=== PATIENT | female | born 1935 | race Hispanic/Latino ===

== ENCOUNTER 2017-04-30 00:04 | Observation (INO) | payer OTHER, MEDICARE ==
[~2017-04-30] VITALS: Ht 154.9 cm; Wt 48.5 kg
[2017-04-30] MEDS ORDERED: ACETAMINOPHEN-CODEINE ELIXIR 5 ML UDCUP ONE (00:41)
[2017-04-30] MEDS ORDERED: SODIUM CHLORIDE 0.9% 500ML 500 ML IV ONE (00:41)
[2017-04-30] MEDS ORDERED: ONDANSETRON HCL 4 MG/2 ML VIAL ONE (00:41)
[2017-04-30 01:18] LABS: BASOPHILS % (AUTO) 0.1 % (0.0-5.0); EOSINOPHILS % (AUTO) 0.1 % (0.0-8.0); HEMATOCRIT 34.2 % (36-48); LYMPHOCYTES % (AUTO) 8.6 % (21.0-51.0); MEAN CORPUSCULAR HEMOGLOBIN 29.5 pg (27.0-33.0); MEAN CORPUSCULAR HGB CONC 33.2 g/dL (32.0-36.0); MONOCYTES % (AUTO) 3.6 % (3.0-13.0); NEUTROPHILS % (AUTO) 87.6 % (40.0-77.0); PLATELET COUNT (AUTO) 306 K/uL (130-400); RED BLOOD CELL COUNT(AUTO) 3.85 MIL/uL (4.00-5.50); RED CELL DISTRIBUTION WIDTH 14.9 % (11.0-15.5); WHITE BLOOD COUNT (AUTO) 16.7 K/uL (4.8-10.8)
[2017-04-30] MEDS ORDERED: IOPAMIDOL-370 75 ML VIAL IV ONE (01:18)
[2017-04-30 01:29] LABS: CREATININE 0.5 mg/dL (0.5-1.5); POTASSIUM 3.3 mmol/L (3.5-5.1)
[2017-04-30 01:36] LABS: ALBUMIN 3.7 g/dL (3.5-5.0); BILIRUBIN,TOTAL 0.5 mg/dL (0.2-1.0); TOTAL PROTEIN, SERUM 7.2 g/dL (6.0-8.3)
[2017-04-30 01:42] LABS: B-TYPE NATRIURETIC PEPTIDE 22 pg/mL (0-100)
[2017-04-30] MEDS ORDERED: CEFTRIAXONE SODIUM 1 GM ONE (02:06)
[2017-04-30] MEDS ORDERED: METRONIDAZOLE 500 MG TABLET ONE (02:06)
[2017-04-30 02:23] LABS: APPEARANCE,URINE Clear (CLEAR); BILIRUBIN,URINE Negative (NEGATIVE); COLOR,URINE Yellow (YELLOW); GLUCOSE, URINE (UA) Negative (NEGATIVE); KETONES,URINE Trace mg/dL (NEGATIVE); LEUKOCYTE ESTERASE ,URINE Trace (NEGATIVE); NITRATE,URINE Positive (NEGATIVE); OCCULT BLOOD,URINE Negative (NEGATIVE); PH,URINE 6.5 (5.0-8.0); PROTEIN,URINE Negative (NEGATIVE)
[2017-04-30 02:33] LABS: BACTERIA,URINE Many /HPF (None Seen); MUCUS,URINE Rare LPF (None Seen); RBC,URINE None Seen /HPF (0-1); SQUAMOUS EPITHELIAL CELL,UR Rare /LPF (0-2)
[2017-04-30] MEDS ORDERED: POTASSIUM CHLORIDE 20 MEQ ERTAB PO ONE (02:33)
[2017-04-30] MEDS ORDERED: DOCUSATE SODIUM 100 MG CAP PO ONE (05:48)
[2017-04-30] MEDS ORDERED: SENNOSIDES 8.6 MG TABLET PO SCH (06:15)
[2017-04-30] MEDS ORDERED: NITROGLYCERIN 0.4 MG SL TAB SL ONE (11:55)
[2017-04-30] MEDS ORDERED: IPRATROPIUM/ALBUTEROL SULFATE 3 ML SOLUTION IH ONE (12:47)
[2017-04-30 17:51] VITALS: BP 141/64
[2017-04-30] MEDS ORDERED: ATOR40TA69 PO (18:33)
[2017-04-30] MEDS ORDERED: LEVO50TA4 PO (18:33)
[2017-04-30 23:53] VITALS: BP 164/57
[2017-05-01 04:23] VITALS: BP 155/56
[2017-05-01 07:30] VITALS: BP 139/59
== END 2017-05-01 15:50 | disposition home or self-care (01) ==
LOC: EDH 00:04 → EDHIP 05:41 → 3DH 17:20
PROVIDERS: ADMIT Internal Medicine; ATTEND Internal Medicine
DX: K56.609 Unspecified intestinal obstruction, unspecified as to partial versus complete obstruction (principal); M81.0 Age-related osteoporosis without current pathological fracture; J44.9 Chronic obstructive pulmonary disease, unspecified; F41.9 Anxiety disorder, unspecified; M19.90 Unspecified osteoarthritis, unspecified site
CPT/HCPCS: 36415; 74177; 80053; 81001; 82948; 83605; 83690; 83880; 85025; 87804 ×2; 93005; 99291; G0378 ×34; J0696; J2405; J7040; Q9967

== ENCOUNTER 2017-05-25 12:29 | Emergency (ER) | payer OTHER, MEDICARE ==
[~2017-05-25 12:29] MED LIST: ATOR40TA69 PO; LEVO50TA4 PO
== END 2017-05-25 15:38 | disposition home or self-care (01) ==
LOC: EDH 12:29
DX: S40.012A Contusion of left shoulder, initial encounter (principal); S60.222A Contusion of left hand, initial encounter; E78.5 Hyperlipidemia, unspecified; E07.9 Disorder of thyroid, unspecified; W18.39XA Other fall on same level, initial encounter; Y93.01 Activity, walking, marching and hiking; Y92.89 Other specified places as the place of occurrence of the external cause; Y99.8 Other external cause status
CPT/HCPCS: 73030; 73130

== ENCOUNTER 2017-06-03 01:44 | Inpatient (IN) | payer OTHER, MEDICARE ==
[~2017-06-03] VITALS: Ht 152.4 cm; Wt 49.3 kg
[2017-06-03 02:11] LABS: BASOPHILS % (AUTO) 0.1 % (0.0-5.0); HEMATOCRIT 38.5 % (36-48); LYMPHOCYTES % (AUTO) 8.6 % (21.0-51.0); MEAN CORPUSCULAR HGB CONC 32.8 g/dL (32.0-36.0); MEAN CORPUSCULAR VOLUME 88.2 fL (79-99); MONOCYTES % (AUTO) 2.8 % (3.0-13.0); NEUTROPHILS % (AUTO) 88.5 % (40.0-77.0); NUCLEATED RED BLOOD CELLS 0.1 % (0.0-0.19); PLATELET COUNT (AUTO) 294 K/uL (130-400); RED BLOOD CELL COUNT(AUTO) 4.37 MIL/uL (4.00-5.50); WHITE BLOOD COUNT (AUTO) 17.1 K/uL (4.8-10.8)
[2017-06-03] MEDS ORDERED: ONDANSETRON HCL 4 MG/2 ML VIAL ONE (02:24)
[2017-06-03] MEDS ORDERED: LACTATED RINGERS 1000ML 1,000 ML IV ONE (02:25)
[2017-06-03] MEDS ORDERED: MORPHINE SULFATE 2 MG/ML 1ML SYG ONE (02:25)
[2017-06-03 02:29] LABS: CREATININE 0.6 mg/dL (0.5-1.5); POTASSIUM 3.6 mmol/L (3.5-5.1)
[2017-06-03 02:32] LABS: ALBUMIN 4.1 g/dL (3.5-5.0); BILIRUBIN,TOTAL 0.5 mg/dL (0.2-1.0); TOTAL PROTEIN, SERUM 8.2 g/dL (6.0-8.3)
[2017-06-03 02:37] LABS: APPEARANCE,URINE Cloudy (CLEAR); BILIRUBIN,URINE Negative (NEGATIVE); COLOR,URINE Yellow (YELLOW); GLUCOSE, URINE (UA) Negative (NEGATIVE); KETONES,URINE Trace mg/dL (NEGATIVE); LEUKOCYTE ESTERASE ,URINE Small (NEGATIVE); NITRATE,URINE Negative (NEGATIVE); OCCULT BLOOD,URINE Negative (NEGATIVE); PROTEIN,URINE POS 2+ (NEGATIVE); UROBILINOGEN,URINE 0.2 mg/dL (0.2-1.0)
[2017-06-03 02:51] LABS: BACTERIA,URINE Few /HPF (None Seen); MUCUS,URINE Many LPF (None Seen); RBC,URINE None Seen /HPF (0-1); SQUAMOUS EPITHELIAL CELL,UR Few /LPF (0-2)
[2017-06-03] MEDS ORDERED: SODIUM CHLORIDE 0.9% 1000ML 1,000 ML IV ONE (08:07)
[2017-06-03 14:34] VITALS: BP 143/68
[2017-06-03 16:38] VITALS: BP 129/61
[2017-06-03] MEDS ORDERED: POLY17PO4 PO (19:09)
[2017-06-03 20:00] VITALS: BP 132/65
[2017-06-03] MEDS ORDERED: ONDANSETRON HCL 4 MG/2 ML VIAL IVP PRN (21:00)
[2017-06-03] MEDS: FAMOTIDINE/PF 20 MG/2 ML VIAL IV SCH (21:00)
[2017-06-03] MEDS ORDERED: HYDROMORPHONE HCL 0.5 MG/0.5 ML ML IVP PRN (21:00)
[2017-06-03] MEDS: SODIUM CHLORIDE 0.9% 1000ML 1,000 ML IV SCH (21:00)
[2017-06-04 00:17] VITALS: BP 121/59
[2017-06-04] MEDS: SODIUM CHLORIDE 0.9% 1000ML 1,000 ML IV SCH (01:39)
[2017-06-04 04:38] VITALS: BP 144/60
[2017-06-04 06:06] LABS: BASOPHILS % (AUTO) 0.5 % (0.0-5.0); EOSINOPHILS % (AUTO) 1.1 % (0.0-8.0); HEMATOCRIT 29.6 % (36-48); LYMPHOCYTES % (AUTO) 36.3 % (21.0-51.0); MEAN CORPUSCULAR HEMOGLOBIN 29.2 pg (27.0-33.0); MEAN CORPUSCULAR VOLUME 88.4 fL (79-99); NEUTROPHILS % (AUTO) 54.1 % (40.0-77.0); NUCLEATED RED BLOOD CELLS 0.1 % (0.0-0.19); PLATELET COUNT (AUTO) 217 K/uL (130-400); RED BLOOD CELL COUNT(AUTO) 3.34 MIL/uL (4.00-5.50); RED CELL DISTRIBUTION WIDTH 15.1 % (11.0-15.5); WHITE BLOOD COUNT (AUTO) 5.6 K/uL (4.8-10.8)
[2017-06-04 06:07] LABS: CREATININE 0.6 mg/dL (0.5-1.5); POTASSIUM 3.5 mmol/L (3.5-5.1)
[2017-06-04 07:58] VITALS: BP 142/63
[2017-06-04] MEDS: LACTULOSE 20 GM/30 ML UDCUP PO SCH ×2 (08:18→14:45)
[2017-06-04] MEDS: FAMOTIDINE/PF 20 MG/2 ML VIAL IV SCH (08:18)
[2017-06-04 11:19] VITALS: BP 146/68
== END 2017-06-04 17:35 | disposition home or self-care (01) | DRG 390 ==
LOC: EDH 01:44 → EDHIP 04:43 → 4BH 14:04
PROVIDERS: ADMIT Internal Medicine; ATTEND Internal Medicine
DX: K56.609 Unspecified intestinal obstruction, unspecified as to partial versus complete obstruction (principal); E86.0 Dehydration; J44.9 Chronic obstructive pulmonary disease, unspecified; E03.9 Hypothyroidism, unspecified; E78.5 Hyperlipidemia, unspecified; D72.829 Elevated white blood cell count, unspecified; R73.9 Hyperglycemia, unspecified; I10 Essential (primary) hypertension; Z28.21 Immunization not carried out because of patient refusal
CPT/HCPCS: 36415; 74021; 74176; 80048; 80053; 81001; 82150; 83690; 85025; 87040; 87088; 87186; 93005; J2405; J3490; J7030; J7120

== ENCOUNTER → 2018-04-08 | Outpatient (CLI) | payer OTHER, MEDICARE ==
[~2018-04-08] MED LIST changes: +POLY17PO4 PO
== END | disposition home or self-care (01) ==
LOC: OIH 15:12
PROVIDERS: ATTEND Internal Medicine
DX: I70.0 Atherosclerosis of aorta (principal); I10 Essential (primary) hypertension; M47.815 Spondylosis without myelopathy or radiculopathy, thoracolumbar region; J84.10 Pulmonary fibrosis, unspecified
CPT/HCPCS: 71046

== ENCOUNTER → 2018-08-15 | Outpatient (CLI) | payer OTHER, MEDICARE | END | disposition home or self-care (01) | LOC: OIH 15:23 | PROVIDERS: ATTEND Internal Medicine | DX: M47.816 Spondylosis without myelopathy or radiculopathy, lumbar region (principal); M48.061 Spinal stenosis, lumbar region without neurogenic claudication; G95.9 Disease of spinal cord, unspecified; R25.2 Cramp and spasm | CPT/HCPCS: 72100 ==

== ENCOUNTER 2018-10-13 17:22 | Observation (INO) | payer OTHER, MEDICARE ==
[~2018-10-13] VITALS: Ht 157.5 cm; Wt 48.0 kg
[2018-10-13] MEDS ORDERED: SODIUM CHLORIDE 0.9% 1000ML 1,000 ML IV ONE (17:45)
[2018-10-13] MEDS ORDERED: ONDANSETRON HCL 4 MG/2 ML VIAL ONE (17:45)
[2018-10-13 18:25] LABS: BASOPHILS % (AUTO) 0.1 % (0.0-5.0); EOSINOPHILS % (AUTO) 0.1 % (0.0-8.0); HEMATOCRIT 37.2 % (36-48); LYMPHOCYTES % (AUTO) 12.4 % (21.0-51.0); MEAN CORPUSCULAR HEMOGLOBIN 28.2 pg (27.0-33.0); MEAN CORPUSCULAR HGB CONC 32.1 g/dL (32.0-36.0); MONOCYTES % (AUTO) 4.3 % (3.0-13.0); NEUTROPHILS % (AUTO) 83.1 % (40.0-77.0); PLATELET COUNT (AUTO) 308 K/uL (130-400); RED BLOOD CELL COUNT(AUTO) 4.23 MIL/uL (4.00-5.50); RED CELL DISTRIBUTION WIDTH 14.2 % (11.0-15.5); WHITE BLOOD COUNT (AUTO) 16.7 K/uL (4.8-10.8)
[2018-10-13 18:38] LABS: CREATININE 0.7 mg/dL (0.5-1.5); POTASSIUM 3.7 mmol/L (3.5-5.1)
[2018-10-13] MEDS ORDERED: KETOROLAC TROMETHAMINE 15MG/ML ONE (18:41)
[2018-10-13 18:42] LABS: APPEARANCE,URINE CLOUDY (CLEAR); BILIRUBIN,URINE NEGATIVE (NEGATIVE); COLOR,URINE YELLOW (YELLOW); GLUCOSE, URINE (UA) NEGATIVE (NEGATIVE); KETONES,URINE 5 mg/dL (NEGATIVE); LEUKOCYTE ESTERASE ,URINE LARGE (NEGATIVE); NITRATE,URINE POSITIVE (NEGATIVE); OCCULT BLOOD,URINE TRACE-INTACT (NEGATIVE); PROTEIN,URINE 30 mg/dL (NEGATIVE); UROBILINOGEN,URINE 0.2 mg/dL (0.2-1.0)
[2018-10-13 18:43] LABS: BILIRUBIN,TOTAL 0.5 mg/dL (0.2-1.0)
[2018-10-13 18:47] LABS: INR 0.96 (0.85-1.15); PARTIAL THROMBOPLASTIN TIME 27.6 SEC (26.3-35.5); PROTHROMBIN TIME 10.1 SEC (9.6-11.6)
[2018-10-13 19:26] LABS: RBC,URINE 0-1 /HPF (0-1); WBC,URINE 26-50 /HPF (0-1)
[2018-10-13 19:29] LABS: BACTERIA,URINE Moderate /HPF (None Seen); SQUAMOUS EPITHELIAL CELL,UR Moderate /HPF (0-2)
[2018-10-13 19:30] LABS: MUCUS,URINE Few LPF (None Seen)
[2018-10-13] MEDS ORDERED: CEFTRIAXONE SODIUM 1 GM ONE (20:39)
[2018-10-13] MEDS ORDERED: LEVOFLOXACIN 500 MG/D5W 100 ML 100 ML ONE (20:39)
[2018-10-13] MEDS ORDERED: PEG 3350/NA SULF,BICARB,CL/KCL 4000 ML SOLN PO SCH (20:45)
[2018-10-13] MEDS: LEVOFLOXACIN 750 MG/D5W 150 ML 150 ML IV SCH (21:00)
[2018-10-14] MEDS ORDERED: PEG 3350/NA SULF,BICARB,CL/KCL 4000 ML SOLN ONE (02:06)
[2018-10-14 02:15] VITALS: BP 142/60
--- NOTE | 2018-10-14 02:15 | NUR ---
Admission note: Admitted to floor via stretcher. Fully awake and responsive. AOx3. Placed in bed comfortably. Can amb only with guarding due to her condition.VS checked and recorded. Assessment done. ( see CPOE flow chart) Plan of care initiated. Refused to be inserted with NGT as per ER staff report. Refusal form signed at ER. Oriented to room and used of call light. Policies and procedures explained. Verbalized understanding. Golytely 1 quart given as ordered -tolerated. Pt. verbalized abdominal soreness , but did not asked for any pain medication at this time. Has IV site to [facility]#20gauge, SL - patent and intact. Kept monitored and observed for any unusualities. No apparent distress noted. Questions entertained.Needs attended and cared for.
[2018-10-14] MEDS ORDERED: LEVO75TA4 PO (02:57)
[2018-10-14 05:20] LABS: HEMATOCRIT 33.7 % (36-48); MEAN CORPUSCULAR HEMOGLOBIN 28.3 pg (27.0-33.0); MEAN CORPUSCULAR HGB CONC 32.5 g/dL (32.0-36.0); MEAN CORPUSCULAR VOLUME 87.1 fL (79-99); PLATELET COUNT (AUTO) 289 K/uL (130-400); RED BLOOD CELL COUNT(AUTO) 3.87 MIL/uL (4.00-5.50); RED CELL DISTRIBUTION WIDTH 14.4 % (11.0-15.5); WHITE BLOOD COUNT (AUTO) 9.4 K/uL (4.8-10.8)
[2018-10-14 06:07] LABS: ALBUMIN 3.2 g/dL (3.5-5.0); BILIRUBIN,TOTAL 0.4 mg/dL (0.2-1.0); CREATININE 0.7 mg/dL (0.5-1.5); TOTAL PROTEIN, SERUM 6.9 g/dL (6.0-8.3)
--- NOTE | 2018-10-14 06:20 | NUR ---
DR. Saravia rounded: Seen and examined pt. with orders carried out. ( See Nursing Communication/CPOE)
[2018-10-14] MEDS ORDERED: ACETAMINOPHEN 325 MG TAB PO PRN (07:00)
[2018-10-14] MEDS ORDERED: POTASSIUM CHLORIDE 20MEQ/100ML 100 ML IV PRN (07:00)
[2018-10-14] MEDS ORDERED: POTASSIUM CHLORIDE 10% ELIXIR 20 MEQ/15 ML UDCUP PO PRN (07:00)
[2018-10-14] MEDS ORDERED: DICYCLOMINE HCL 20 MG TAB PO PRN (07:00)
[2018-10-14] MEDS ORDERED: LIDOCAINE HCL-MPF 1% 2ML VIAL IVP PRN (07:00)
[2018-10-14] MEDS ORDERED: ONDANSETRON HCL 4 MG/2 ML VIAL IVP PRN (07:00)
[2018-10-14] MEDS: POTASSIUM CHLORIDE 20 MEQ ERTAB PO PRN ×2 (07:34→10:47)
[2018-10-14] MEDS: LEVOTHYROXINE 75 MCG TABLET PO SCH (07:34)
[2018-10-14 08:00] VITALS: BP 126/64
[2018-10-14 12:00] VITALS: BP 121/59
--- NOTE | 2018-10-14 13:43 | NUR ---
PAIN: RESTING IN BED, STATES CONT TO HAVE BM'S , DENIES PAIN.
--- NOTE | 2018-10-14 14:52 | NUR ---
DCP CM met with pt discussed dc plans. Pt is independent prior to admission, lives at home alone, daughter lives close by. Denies any equipments/services. Pt feels safe to go back home, daughter able to assist with transportation and needs as necessary. DC plan to home once stable. CM to cont to follow up. Addendum: 10/14/18 at 1453 by SMITA KAPOOR LVN CM Amended: Links added.
[2018-10-14 16:00] VITALS: BP 125/60
--- NOTE | 2018-10-14 16:30 | NUR ---
UPDATE: DR MERINO RETURNED CALL AND REPORT GIVEN ON PT STATUS, HAVING NUMEROUS BM'S, NO PAIN ALL DAY AND PT REQUESTING TO STAY OVERNIGHT, HAS NO PLACE TO GO HOME TO [facility]. DR MERINO STATES PT MAY STAY OVERNIGHT. PT MADE AWARE. WILL REMAIN ON CL LQDS.
[2018-10-14 19:20] VITALS: BP 120/58
[2018-10-14] MEDS: LEVOFLOXACIN 750 MG/D5W 150 ML 150 ML IV SCH (20:59)
[2018-10-15 00:20] VITALS: BP 115/58
[2018-10-15 04:22] VITALS: BP 145/66
[2018-10-15 06:00] LABS: BASOPHILS % (AUTO) 0.3 % (0.0-5.0); EOSINOPHILS % (AUTO) 1.3 % (0.0-8.0); HEMATOCRIT 30.4 % (36-48); LYMPHOCYTES % (AUTO) 33.7 % (21.0-51.0); MEAN CORPUSCULAR HEMOGLOBIN 29.4 pg (27.0-33.0); MEAN CORPUSCULAR HGB CONC 33.2 g/dL (32.0-36.0); MEAN CORPUSCULAR VOLUME 88.6 fL (79-99); MONOCYTES % (AUTO) 9.9 % (3.0-13.0); NEUTROPHILS % (AUTO) 54.8 % (40.0-77.0); NUCLEATED RED BLOOD CELLS 0.1 % (0.0-0.19); PLATELET COUNT (AUTO) 246 K/uL (130-400); RED BLOOD CELL COUNT(AUTO) 3.43 MIL/uL (4.00-5.50); RED CELL DISTRIBUTION WIDTH 14.5 % (11.0-15.5)
[2018-10-15 06:14] LABS: ALBUMIN 2.8 g/dL (3.5-5.0); BILIRUBIN,TOTAL 0.4 mg/dL (0.2-1.0); CREATININE 0.6 mg/dL (0.5-1.5); POTASSIUM 4.8 mmol/L (3.5-5.1); TOTAL PROTEIN, SERUM 5.9 g/dL (6.0-8.3)
--- NOTE | 2018-10-15 06:20 | NUR ---
SINDY LIRA rounded: Visited and talked to pt. OK to discharge today. To follow up with her GI doctor after a couple of days. Pt. verbalized wants to go home after breakfast.
[2018-10-15] MEDS: LEVOTHYROXINE 75 MCG TABLET PO SCH (06:38)
[2018-10-15 08:00] VITALS: BP 113/53
--- NOTE | 2018-10-15 11:40 | NUR ---
DISCHARGE PATIENT GIVEN DISCHARGE INSTRUCTION AND EDUCATION ON FOLLOW UP APPOINTMENTS AND NEW PRESCRIBED ANTIBIOTIC. PATIENT VERBALIZED UNDERSTANDING OF ALL EDUCATION GIVEN VIA TEACH BACK. NO CONCERNS VOICED. PATIENT IS WAITING FOR HER DAUGHTER TO COME AND PICK HER UP AFTER WORK. IV DISCONTINUED, CATHETER INTACT.
--- NOTE | 2018-10-15 11:50 | NUR ---
PATIENT COMPLAINED OF ABDOMINAL PAIN. STATED SHE FELT FINE IN THE MORNING AND EVEN HAD A BM RIGHT AFTER SHE WAKE UP. HOWEVER SHE STARTED A SOFT DIET AT BREAKFAST AND AFTER THAT SHE STARTED FEELING BLOATED. PATIENT DID NOT COMPLAIN UNTIL NOW OF ABDOMINAL PAIN. STATED SHE WANTED TO TALK TO DR. CALLAHAN. PAGED DR. CALLAHAN 2 TIMES, LEAVING A VOICEMAIL BOTH TIMES, NO RESPONSE. PT DECIDED TO LEAVE EITHER WAY BECAUSE HER RIDE HOME WASN'T WILLING TO WAIT FOR DR. Sheets RESPONSE. NO DISTRESS NOTED UPON DISCHARGE. ALL BELONGINGS TAKEN WITH.
[2018-10-15 11:52] VITALS: BP 122/65
== END 2018-10-15 13:14 | disposition home or self-care (01) ==
LOC: EDH 17:22 → OBSVTOIN 20:15 → INTOOBSV 20:15 → EDHIP 20:15 → 3CH 10-14 02:24
PROVIDERS: ADMIT Internal Medicine; ATTEND Internal Medicine
DX: K58.9 Irritable bowel syndrome, unspecified (principal); E78.5 Hyperlipidemia, unspecified; I10 Essential (primary) hypertension; J44.9 Chronic obstructive pulmonary disease, unspecified; N39.0 Urinary tract infection, site not specified; K56.41 Fecal impaction; M19.90 Unspecified osteoarthritis, unspecified site; M81.0 Age-related osteoporosis without current pathological fracture; F32.9 Major depressive disorder, single episode, unspecified; F41.9 Anxiety disorder, unspecified; Z79.899 Other long term (current) drug therapy; Z79.01 Long term (current) use of anticoagulants
CPT/HCPCS: 36415 ×3; 74176; 80053 ×3; 81001; 82150; 82550; 83690; 84484; 85025 ×2; 85027; 85610; 85730; 87077; 87088; 87186; 93005; 96365; 99284; G0378 ×37; J0696; J1885; J1956 ×2; J2405; J7030

== ENCOUNTER → 2018-11-24 | Outpatient (CLI) | payer OTHER, MEDICARE ==
[~2018-11-24] MED LIST changes: -LEVO50TA4 PO; +LEVO75TA4 PO
== END | disposition home or self-care (01) ==
LOC: OIH 15:45
PROVIDERS: ATTEND Internal Medicine
DX: M89.8X1 Other specified disorders of bone, shoulder (principal); M54.89 Other dorsalgia
CPT/HCPCS: 73010

== ENCOUNTER → 2019-09-15 | Outpatient (CLI) | payer OTHER, MEDICARE | END | disposition home or self-care (01) | LOC: OIH 16:24 | PROVIDERS: ATTEND Internal Medicine Gastroenterology | DX: R10.30 Lower abdominal pain, unspecified (principal) ==

== ENCOUNTER → 2019-11-05 | Outpatient (CLI) | payer OTHER, MEDICARE | END | disposition home or self-care (01) | LOC: OIH 11:04 | PROVIDERS: ATTEND Internal Medicine | DX: J44.9 Chronic obstructive pulmonary disease, unspecified (principal); J84.10 Pulmonary fibrosis, unspecified; Q25.49 Other congenital malformations of aorta; M41.9 Scoliosis, unspecified | CPT/HCPCS: 71046 ==